=== PATIENT | female | born 1995 | race Caucasian/White ===

== ENCOUNTER 2017-09-12 20:00 | Emergency (ER) | payer OTHER ==
[~2017-09-12] VITALS: Ht 167.6 cm; Wt 90.7 kg
[2017-09-12 20:00] VITALS: BP 139/81
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
[2017-09-12] MEDS ORDERED: BUPIVACAINE MPF 0.5% 30 ML VIAL. SQ ONE (20:15)
[2017-09-12] MEDS ORDERED: LIDOCAINE 2% 20 ML VIAL. IJ ONE (20:15)
[2017-09-12] MEDS ORDERED: ONDANSETRON ODT 4 MG TAB.RAPDIS PO ONE (21:30)
[2017-09-12] MEDS ORDERED: oxyCODONE/APAP 5/325 1 TAB TABLET PO ONE (21:30)
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
--- NOTE | 2017-09-13 08:21 | RAD ---
Indication: Trauma Technique: AP and lateral views of the bilateral tibia and fibula Comparison: None Findings/impression: No acute fractures or dislocation. No soft tissue abnormality.
== END 2017-09-12 22:55 | disposition home or self-care (01) ==
LOC: ER 20:00
DX: S06.0X0A Concussion without loss of consciousness, initial encounter (principal); S80.02XA Contusion of left knee, initial encounter; S80.01XA Contusion of right knee, initial encounter; V86.59XA Driver of other special all-terrain or other off-road motor vehicle injured in nontraffic accident, initial encounter; Y93.89 Activity, other specified; Y99.8 Other external cause status; Y92.488 Other paved roadways as the place of occurrence of the external cause
CPT/HCPCS: 12001; 70450; 72125; 73562; 73590; 81025; 99284; J3490; Q0162; J2001